=== PATIENT | male | born 1955 | race Caucasian/White ===

== ENCOUNTER 2025-05-05 14:47 | Emergency (ER) | payer MEDICARE, OTHER ==
[2025-05-05 15:07] VITALS: TEMP 98
[2025-05-05] MEDS: BABY ASPIRIN 81 MG CHEW PO ONE (15:12)
[2025-05-05] MEDS ORDERED: BABY ASPIRIN 81 MG CHEW ONE (15:12)
[2025-05-05 15:14] LABS: BASOPHIL % 0.4 % (0.2-1.2); Basophil (Absolute #) 0.06 x10^3/uL (0.01-0.08); Eosinophil (Absolute #) 0.04 x10^3/uL (0.04-0.54); Hematocrit 43.7 % (40.1-51.0); Hemoglobin 14.6 g/dL (13.7-17.5); IMMATURE GRAN # 0.04 x10^3u/L (0.001-0.031); IMMATURE GRAN % 0.3 % (0.001-0.429); Lymphocyte (Absolute #) 2.63 x10^3/uL (1.32-3.57); Mean Corpuscular Hemoglobin 28.8 pg (25.7-32.2); Mean Corpuscular Hgb Concent. 33.4 g/dL (32.3-36.5); Monocyte (Absolute #) 1.52 x10^3/uL (0.30-0.82); NUCLEATED RBC # 0.00 x10^3u/L (0.00-0.012); NUCLEATED RBC % 0.0 % (0.00-0.2); Platelet Count 289 x10^3/uL (163-337); Red Blood Count 5.07 x10^6/uL (4.63-6.08); White Blood Count 13.4 x10^3/uL (4.23-9.07)
--- NOTE | 2025-05-05 15:18 | ERPHSYRPT ---
- History of Present Illness Time Seen by Provider: 05/05/25 14:50 Source: patient Exam Limitations: no limitations Patient Subjective Stated Complaint: pt was leaning next to a truck yesterday when he suddenly blacked out and fell to the ground and injured his right foot/ankle, pt was helped up and he blacked out again Triage Nursing Assessment: Pt brought to the ER by his daughter, hypertensive, rates foot/ankle pain as 3/10 while not standing on it, pulses normal, skin n/w/d, right ankle bruised and swollen, denies chest pain, no difficulty breathing, doesn't appear to be in any distress Physician History: Patient is here for 2 episodes of syncope yesterday with right ankle pain. Patient states that he was at a "[employer]" [employer]. He states that he had dropped syncope. States he had never passed out before. States that he had been drinking alcohol and smoked marijuana for the first time in several years. He states that on one of his falls he twisted his right ankle. He now has right ankle pain and bruising with right foot bruising. He has not taken anything to make it better or worse. He has not iced it. Again he denies any history of heart issues, syncope, pulmonary embolism, arrhythmias, other cause of drop syncope. States he has no history of a stroke and is not on any blood thinners. Patient is taking PO well. Same number of urinations and defecations. The patient has no signs of altered mental status, nuchal rigidity, signs of meningitis. The patient is up-to-date on all vaccinations. Allergies/Adverse Reactions: No Known Drug Allergies Allergy (Verified 05/05/25 15:08) Home Medications: No Reportable Medications [No Reported Medications] 05/05/25 [History] Hx Influenza Vaccination/Date Given: No Hx Pneumococcal Vaccination/Date Given: No Travel Risk - International Travel Have you traveled outside of the country in past 3 weeks: No - Emerging Infectious Disease Are you exhibiting symptoms associated with any current EIDs: No - Past Medical History Pertinent Past Medical History: No - Past Surgical History Past Surgical History: Yes Musculoskeletal: Orthopedic Surgery Other Surgical History: back - Social History Smoking Status: Current every day smoker Exposure to second hand smoke: Yes Drug Use: marijuana - Social Determinants of Health Will the patient participate in the screening: Yes Do you worry about a steady place to live?: No Do you have any problems with any of the following?: No known problems In the past 12 months,have you had to go without utilities?: No Transportation Issues: No Has anyone in your support network made you feel unsafe?: No Have you or anyone in your house had to go w/o enough food: No - Nursing Vital Signs Nursing Vital Signs: Initial Vital Signs Pulse Rate 79 05/05/25 15:00 Respiratory Rate 14 05/05/25 15:00 Blood Pressure 153/84 05/05/25 15:00 O2 Sat by Pulse Oximetry 96 05/05/25 15:00 Pain Scale Pain Intensity 3 - Physical Exam SpO2 Interpretation: normal SpO2: 97 Comments: 05/05/25 15:19 Review of Systems Constitutional: Negative for fever. HENT: Negative for congestion. Respiratory: Negative for shortness of breath. Cardiovascular: Negative for chest pain. Syncope Gastrointestinal: Negative for abdominal pain. Genitourinary: Negative for dysuria. Musculoskeletal: Negative for back pain. Right foot pain Skin: Negative for rash. Neurological: Negative for headaches. Psychiatric/Behavioral: Negative for behavioral problems. All other systems reviewed and are negative. Physical Exam Vitals signs and nursing note reviewed. Constitutional: Appearance: Patient is well-developed. HENT: Head: Normocephalic and atraumatic. Eyes: Conjunctiva/sclera: Conjunctivae normal. Neck: Musculoskeletal: Normal range of motion. Trachea: No tracheal deviation. Cardiovascular: Rate and Rhythm: Normal rate. Heart sounds normal. Pulmonary: Effort: Pulmonary effort is normal. No respiratory distress. Abdominal: Palpations: Abdomen is soft. Musculoskeletal: General: Patient has right ankle bruising, tenderness, extending into the right foot. Some effusion to that ankle. Limited range of motion secondary to pain. Full strength in toes. Neurovascularly intact, 2+ pulses, 2+ cap refill. No proximal tibia or fibula tenderness. Compartments are soft, nontender. Skin: General: Skin is warm and dry. Neurological/ Psychiatric: Mental Status: Mental status, behavior, interaction with environment is appropriate for patient's age and condition Motor: Patient lifts arms against gravity. Muscle strength and tone are normal Reflexes: Intact major reflexes Sensory: Light touch sensation intact throughout upper and lower extremities Coordination: Rapid alternating movements are intact. Normal [id number] Gait/Stance: Posture is normal, patient is sitting up in bed with normal strength - Course Nursing assessment & vital signs reviewed: Yes EKG Interpreted by Me: Sinus Rhythm (EKG demonstrates sinus rhythm, rate of 75, OH interval 164, QRS 89, QTc is 416, no STEMI or other ST changes my interpretation at 1457) Ordered Tests: Active Orders 24 hr Category Date Time Status Functional Analyst STAT Care 05/05/25 15:01 Active EKG-ER Only STAT Care 05/05/25 15:01 Active IV Insertion STAT Care 05/05/25 15:01 Active ANKLE (3 VIEWS) Stat Exams 05/05/25 16:39 Completed CHEST 1 VIEW (PORTABLE) Stat Exams 05/05/25 16:39 Completed CHEST WITH CONTRAST [CT] Stat Exams 05/05/25 17:22 Completed FOOT (MINIMUM 3 VIEWS) Stat Exams 05/05/25 16:39 Completed HEAD WITHOUT CONTRAST [CT] Stat Exams 05/05/25 16:39 Completed CBC W DIFF Stat Lab 05/05/25 15:10 Completed CK-Creatinine Phosphokinase Stat Lab 05/05/25 15:10 Completed CMP Stat Lab 05/05/25 15:10 Completed D-DIMER QUANTITATIVE Stat Lab 05/05/25 15:10 Completed NT PRO BNPII Stat Lab 05/05/25 15:10 Completed TROPONIN Q4H Lab 05/05/25 15:10 Completed TROPONIN Q4H Lab 05/05/25 19:15 Ordered TROPONIN Q4H Lab 05/05/25 23:15 Ordered Medication Summary Discontinued Medications Generic Name Dose Route Start Last Admin Trade Name Freq PRN Reason Stop Dose Admin Aspirin 324 mg 05/05/25 15:01 05/05/25 15:12 Aspirin 81 Mg Tab.Chew PO 05/05/25 15:02 324 mg STAT ONE Administration Aspirin Confirm 05/05/25 15:12 Aspirin 81 Mg Tab.Chew Administered 05/05/25 15:13 Dose 324 mg .ROUTE .STK-MED ONE Lab/Rad Data: Laboratory Result Diagrams 05/05/25 15:10 05/05/25 15:10 Laboratory Results 05/05/25 05/05/25 05/05/25 Range/Units 15:10 15:10 15:10 WBC (4.23-9.07) x10^3/uL RBC (4.63-6.08) x10^6/uL Hgb (13.7-17.5) g/dL Hct (40.1-51.0) % MCV (79.0-92.2) fL MCH (25.7-32.2) pg MCHC (32.3-36.5) g/dL RDW (11.6-14.4) % Plt Count (163-337) x10^3/uL MPV (9.4-12.4) fL Gran % (34.0-67.9) % Immature Gran % (Auto) (0.001-0.429) % Nucleat RBC Rel Count (0.00-0.2) % Eos # (Auto) (0.04-0.54) x10^3/uL Immature Gran # (Auto) (0.001-0.031) x10^3u/L Absolute Lymphs (auto) (1.32-3.57) x10^3/uL Absolute Monos (auto) (0.30-0.82) x10^3/uL Absolute Nucleated RBC (0.00-0.012) x10^3u/L Lymphocytes % (21.8-53.1) % Monocytes % (5.3-12.2) % Eosinophils % (0.8-7.0) % Basophils % (0.2-1.2) % Absolute Granulocytes (1.78-5.38) x10^3/uL Basophils # (0.01-0.08) x10^3/uL D-Dimer 2.74 H* (0.0-0.50) mg/L Sodium 134 L (135-145) mmol/L Potassium 4.4 (3.5-5.1) mmol/L Chloride 106 (98-107) mmol/L Carbon Dioxide 20 L (22-30) mmol/L Anion Gap 13.2 (5-15) MEQ/L BUN 14 (9-20) mg/dL Creatinine 0.94 (0.66-1.25) mg/dL Estimated GFR 86.7 ML/MIN Glucose 110 H (74-106) mg/dL Calcium 9.4 (8.4-10.2) mg/dL Total Bilirubin 0.80 (0.2-1.3) mg/dL AST 28 (17-59) U/L ALT 33 (0-50) U/L Alkaline Phosphatase 94 (38-126) U/L Creatine Kinase 60 (55-170) U/L Troponin I < 0.012 (0.000-0.033) ng/mL NT-Pro-B Natriuret Pep 363 (<300) pg/mL Serum Total Protein 7.0 (6.3-8.2) g/dL Albumin 4.3 (3.5-5.0) g/dL //25 Range/Units 15:10 WBC 13.4 H (4.23-9.07) x10^3/uL RBC 5.07 (4.63-6.08) x10^6/uL Hgb 14.6 (13.7-17.5) g/dL Hct 43.7 (40.1-51.0) % MCV 86.2 (79.0-92.2) fL MCH 28.8 (25.7-32.2) pg MCHC 33.4 (32.3-36.5) g/dL RDW 13.5 (11.6-14.4) % Plt Count 289 (163-337) x10^3/uL MPV 9.8 (9.4-12.4) fL Gran % 67.9 (34.0-67.9) % Immature Gran % (Auto) 0.3 (0.001-0.429) % Nucleat RBC Rel Count 0.0 (0.00-0.2) % Eos # (Auto) 0.04 (0.04-0.54) x10^3/uL Immature Gran # (Auto) 0.04 H (0.001-0.031) x10^3u/L Absolute Lymphs (auto) 2.63 (1.32-3.57) x10^3/uL Absolute Monos (auto) 1.52 H (0.30-0.82) x10^3/uL Absolute Nucleated RBC 0.00 (0.00-0.012) x10^3u/L Lymphocytes % 19.7 L (21.8-53.1) % Monocytes % 11.4 (5.3-12.2) % Eosinophils % 0.3 L (0.8-7.0) % Basophils % 0.4 (0.2-1.2) % Absolute Granulocytes 9.06 H (1.78-5.38) x10^3/uL Basophils # 0.06 (0.01-0.08) x10^3/uL D-Dimer (0.0-0.50) mg/L Sodium (135-145) mmol/L Potassium (3.5-5.1) mmol/L Chloride (98-107) mmol/L Carbon Dioxide (22-30) mmol/L Anion Gap (5-15) MEQ/L BUN (9-20) mg/dL Creatinine (0.66-1.25) mg/dL Estimated GFR ML/MIN Glucose (74-106) mg/dL Calcium (8.4-10.2) mg/dL Total Bilirubin (0.2-1.3) mg/dL AST (17-59) U/L ALT (0-50) U/L Alkaline Phosphatase (38-126) U/L Creatine Kinase (55-170) U/L Troponin I (0.000-0.033) ng/mL NT-Pro-B Natriuret Pep (<300) pg/mL Serum Total Protein (6.3-8.2) g/dL Albumin (3.5-5.0) g/dL - Progress Progress: improved Progress Note: 05/05/25 15:21 Differential diagnosis includes: PNA, STEMI, NSTEMI, other infection, musculoskeletal pain, pneumothorax, head bleed, pulmonary embolism, arrhythmia, acute fracture - We'll obtain basic labs, fluids, EKG, troponin, chest x-ray - EKG shows no ST changes - my read - O2 saturations consistently greater than 95%. - CXR shows no pneumonia, pneumothorax - my read - head CT, x-ray right ankle and right foot 05/05/25 18:41 IMPRESSION: 1. A triangular bony fragment is seen along the lateral aspect of the base of the first metatarsal, which may represent a fracture or loose body. 2. Fractures of the medial malleolus and the distal aspect of the fibula with adjacent bony fragments are more evident on the ankle radiographs. 3. A linear lucency is seen along the lateral aspect of the lateral sesamoid bone on the oblique projection, which may be projectional. However, correlation with point tenderness is needed. 4. Soft tissue swelling is seen around the ankle joint and along the dorsal aspect of the foot. 5. Further evaluation with CT can be considered if clinically indicated. 6. Reduced bone density is present. IMPRESSION: 1. Oblique fracture of the right distal fibula, with mild displacement evident on the lateral projection. 2. Transverse fracture of the medial malleolus, with widening of the medial tibiotalar clear space. 3. A lucent area is seen along the medial aspect of the talus on the AP projection, likely a post-traumatic change. 4. A linear bony fragment is seen along the lateral aspect of the distal tibia, evident on the AP projection, and a tiny bony fragment is seen along the distal aspect of the fibula, which may represent possible fractured fragments. 5. Overlying soft tissue swelling is seen around the ankle joint. 6. Further evaluation with CT can be considered if clinically indicated. X-rays as above I did speak with Dr. Adames of orthopedic surgery. He recommended a sugar-tong leg with posterior splint. We placed the patient in this. See nursing note. I did check vascular compromise afterwards patient had good movement of his toes, 2+ cap refill, sensation intact. No signs of compartment syndrome. I did educate patient on returning for any new or changing symptoms. As above patient's first troponin was negative, EKG was nonischemic. CT scan of the chest demonstrated no pulmonary embolism. I did recommend that patient be admitted to the hospital. This would be for continued cardiac monitoring, repeat troponins, workup for syncope. Possible echocardiogram. Even after explaining the risks and benefits patient did decline. 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 Stated he needed to go home and take care of his . He will follow-up with his PCP first thing tomorrow morning to begin the outpatient syncope workup this will likely include Holter monitor, echocardiogram, reexam. Patient will need to also follow-up with podiatry given his above ankle and foot fractures. I did discuss all this with the patient as well as strict return precautions. He states his understanding. Will follow- up as described. Counseled pt/family regarding: lab results, diagnosis, need for follow-up, rad results - Departure Departure Disposition: Home Clinical Impression: Closed right ankle fracture, Fracture of metatarsal of right foot, closed, Syncope Condition: Stable Critical Care Time: No Referrals: ARLENE GAMA [Primary Care Provider, [facility]] - Follow up/PCP as directed Instructions: Ankle Fracture (DC) Additional Instructions: You will need to call the foot and ankle doctor, Dr. Krishan Fernandes [phone] Call first thing tomorrow morning. You will also need outpatient workup for your passing out. We did discuss admitting you to the hospital today. After discussion of risks and benefits he would prefer to go home. You will likely need a heart rate monitor, reexam with your primary care doctor first thing tomorrow morning, echocardiogram. You should call 911 or return to the emergency department for any new or changing symptoms.
[2025-05-05 15:45] LABS: CK-Creatinine Phosphokinase 60.0 U/L (55-170); Calcium 9.4 mg/dL (8.4-10.2); Carbon Dioxide 20.0 mmol/L (22-30); Creatinine 1 0.94 mg/dL (0.66-1.25); EST GLOMERULAR FILTRATION RATE 86.7 ML/MIN; Glucose 110.0 mg/dL (74-106); NT PRO BNPII 363.0 pg/mL (<300); Potassium 4.4 mmol/L (3.5-5.1); SGOT/AST 28.0 U/L (17-59); SGPT/ALT 33.0 U/L (0-50); Total Protein 7.0 g/dL (6.3-8.2)
--- NOTE | 2025-05-05 17:13 | XRAY ---
CLINICAL HISTORY: syncope COMPARISON: None. TECHNIQUE: Axial non-contrast CT scan of the brain was performed from the skull base to the high parietal region. One of the following dose reduction techniques was utilized for this exam: Automated exposure control, adjustment of the mA and/or kV according to patient size, and use of iterative reconstruction. FINDINGS: Brain Parenchyma: Normal attenuation of the cerebral hemispheres, cerebellum, and brainstem. No evidence of acute infarct, hemorrhage, or mass effect. No abnormal areas of hypoattenuation or hyperattenuation. Ventricular System: The ventricles are dilated, in keeping with age-related involutional changes. Subarachnoid Spaces: Prominent sulci and cisterns are more appreciated in the frontal regions bilaterally, more so on the left side. No evidence of subarachnoid hemorrhage or extra-axial fluid collections. Cerebellum and Brainstem: No masses, lesions, or areas of abnormal density are identified. Orbits: Normal appearance of the globes, optic nerves, and extraocular muscles. No evidence of orbital masses or abnormal density. Sinuses: The paranasal sinuses are clear. No evidence of sinusitis or mucosal thickening. Mastoid Air Cells: The mastoid air cells are clear. No evidence of mastoiditis. Skull: Normal skull morphology. IMPRESSION: 1. No acute intracranial abnormality. 2. Age-related atrophic brain changes, more appreciated in the frontal lobes. Electronically Signed by: Anshu Hermosillo MD. (05/05/2025 17:11:14 EDT)
[2025-05-05 17:16] VITALS: BP 174/97; PULSE 75; RESP 16
--- NOTE | 2025-05-05 17:22 | XRAY ---
CLINICAL HISTORY: fall COMPARISON: No prior studies available for comparison. TECHNIQUE: X-ray images of the right ankle were obtained in anteroposterior (AP), lateral, and oblique projections. FINDINGS: Bone Structure: A fracture of the right distal fibula is seen, with mild displacement evident on the lateral projection. A fracture of the medial malleolus is seen, with widening of the medial tibiotalar clear space. A tiny bony fragment is seen along the distal aspect of the lateral malleolus, which may represent a possible avulsion fragment. A lucent area is seen along the medial aspect of the talus on the AP projection. A bony fragment is seen along the lateral aspect of the distal tibia, evident on the AP projection. A plantar calcaneal spur is present. An enthesophyte is seen along the posterior aspect of the calcaneus at the attachment site of the Achilles tendon. Joint Spaces: The tibiotalar joint space is increased. Soft Tissues: Overlying soft tissue swelling is seen around the ankle joint. IMPRESSION: 1. Oblique fracture of the right distal fibula, with mild displacement evident on the lateral projection. 2. Transverse fracture of the medial malleolus, with widening of the medial tibiotalar clear space. 3. A lucent area is seen along the medial aspect of the talus on the AP projection, likely a post-traumatic change. 4. A linear bony fragment is seen along the lateral aspect of the distal tibia, evident on the AP projection, and a tiny bony fragment is seen along the distal aspect of the fibula, which may represent possible fractured fragments. 5. Overlying soft tissue swelling is seen around the ankle joint. 6. Further evaluation with CT can be considered if clinically indicated. Disclaimer: A subtle bone abnormality or fracture may not be readily apparent on X-rays, thus clinical correlation and further imaging including follow-up CT, MRI, or follow-up X-rays are advised as needed. Electronically Signed by: Anshu Hermosillo MD. (05/05/2025 17:22:27 EDT)
--- NOTE | 2025-05-05 17:39 | XRAY ---
CLINICAL HISTORY: PNA COMPARISON: No prior studies are available for comparison. TECHNIQUE: An X-ray image of the chest was obtained in the AP projection. FINDINGS: Pulmonary Parenchyma: A faint, round shadow is seen in the left lower lung zone (arrow). There is no evidence of pleural effusion or pleural thickening. Heart and Mediastinum: The heart size and shape are normal. There is no mediastinal widening or masses. No hilar or mediastinal lymphadenopathy is identified. Bony Thorax: The bony thorax appears intact without fractures or deformities. Soft Tissues: The soft tissues overlying the chest wall are unremarkable. IMPRESSION: 1. No acute cardiopulmonary abnormalities are identified. 2. A faint, round shadow is seen in the left lower lung zone (arrow), which can be related to costochondral junction calcifications; correlation with the lateral view is recommended. Electronically Signed by: Anshu Hermosillo MD. (05/05/2025 17:38:01 EDT)
--- NOTE | 2025-05-05 17:43 | XRAY ---
CLINICAL HISTORY: fall COMPARISON: No prior studies are available for comparison. TECHNIQUE: X-ray images of the right foot were obtained in anteroposterior (AP), lateral, and oblique projections. FINDINGS: Bone Structure: A triangular bony fragment is seen along the lateral aspect of the base of the first metatarsal. Fractures of the medial malleolus and the distal aspect of the fibula with adjacent bony fragments are more evident on the ankle radiographs. Reduced bone density is noted. A bipartite medial sesamoid bone is seen. A linear lucency is seen along the lateral aspect of the lateral sesamoid bone on the oblique projection, which may be projectional. A posterior Stieda process is seen. A plantar calcaneal spur is present. An enthesophyte is seen along the posterior aspect of the calcaneum at the attachment site of the Achilles tendon. Joint Spaces: Joint spaces are normal. There is no evidence of joint effusion or subluxation. Soft Tissues: Overlying soft tissue swelling is seen around the ankle joint and along the dorsal aspect of the foot. IMPRESSION: 1. A triangular bony fragment is seen along the lateral aspect of the base of the first metatarsal, which may represent a fracture or loose body. 2. Fractures of the medial malleolus and the distal aspect of the fibula with adjacent bony fragments are more evident on the ankle radiographs. 3. A linear lucency is seen along the lateral aspect of the lateral sesamoid bone on the oblique projection, which may be projectional. However, correlation with point tenderness is needed. 4. Soft tissue swelling is seen around the ankle joint and along the dorsal aspect of the foot. 5. Further evaluation with CT can be considered if clinically indicated. 6. Reduced bone density is present. Disclaimer: A subtle bone abnormality or fracture may not be readily apparent on X-rays, thus clinical correlation and further imaging including follow-up CT, MRI, or follow-up X-rays are advised as needed. Electronically Signed by: Anshu Hermosillo MD. (05/05/2025 17:41:13 EDT)
[2025-05-05 18:22] VITALS: O2SAT 97
--- NOTE | 2025-05-05 18:28 | XRAY ---
CLINICAL HISTORY: PE, elevated dimer COMPARISON: CXR 05/05/2025 15:02:09 CARDIAC/VASCULAR SONOGRAPHER. TECHNIQUE: Contiguous 3.[address] images of the chest were acquired with administration of intravenous contrast. Coronal and sagittal reconstructions were obtained. IV contrast was administered for post-contrast images. One of the following dose reduction techniques was utilized for this exam: automated exposure control, adjustment of the mA and/or kV according to patient size, and use of iterative reconstruction. FINDINGS: Lungs: The lungs are clear with no evidence of consolidation, collapse, or focal lesions. Bi-basal thin atelectasis is present. There are no ground-glass opacities or interstitial changes. There is no pleural effusion or pleural thickening. A calcified small right lower lobe pulmonary nodule measures 2.5 mm. See image 50, Series 4. Mediastinum: There is no mediastinal mass or abnormal lymphadenopathy. There is a normal appearance of the thymus. Calcified right paratracheal lymph nodes are noted. Hilar Structures: The hilar structures are normal in size and configuration, with no enlargement. Heart and Great Vessels: The heart is normal in size and configuration. There is no pericardial effusion. The thoracic aorta and other great vessels are normal in caliber and course. There is no significant atherosclerosis or aneurysm. The great vessels show normal enhancement post-contrast. Pulmonary Arteries: There is no evidence of pulmonary embolism. The pulmonary arteries are normal in size and course. Esophagus: The esophagus is normal in course and caliber. There are no masses or dilatation. Bones: There are fractures of the right lateral 7th and 8th ribs, with sclerotic edges and possible callus formation. The left 6th rib shows a fracture at the most anterior end, with possible callus formation noted at the costochondral junction, which correlates with the calcified nodular shadow seen in the prior X-ray. Bone density and alignment are normal. Chest Wall: There are no masses or soft tissue abnormalities. Upper Abdomen: The visualized portions of the liver, spleen, pancreas, adrenal glands, and kidneys are normal. There are no abnormalities noted in the visualized upper abdominal organs. Thyroid: The thyroid is normal in size and morphology. There are no nodules or masses. Upper abdomen: Bilateral simple renal cortical cysts are noted. IMPRESSION: 1. No pulmonary thromboembolism, no acute vascular or pulmonary abnormality. 2. There are fractures of the right 7th and 8th ribs with callus formation, and a fracture of the left 6th rib at the most anterior end (which correlates with the calcified shadow in the prior X-ray), representing healing fractures. Correlation with clinical data is recommended. Electronically Signed by: Anshu Hermosillo MD. (05/05/2025 18:27:07 EDT)
[2025-05-05 20:17] LABS: Slide Review 1 YES
== END 2025-05-05 18:56 | disposition home or self-care (01) ==
LOC: ED 14:47
DX: S82.831A Other fracture of upper and lower end of right fibula, initial encounter for closed fracture (principal); S82.51XA Displaced fracture of medial malleolus of right tibia, initial encounter for closed fracture; S92.311A Displaced fracture of first metatarsal bone, right foot, initial encounter for closed fracture; W18.39XA Other fall on same level, initial encounter; R55 Syncope and collapse; Z72.0 Tobacco use

== ENCOUNTER 2025-05-14 05:59 | Day surgery (SDC) | payer MEDICARE, OTHER ==
[2025-05-14] MEDS ORDERED: CEFAZOLIN SODIUM ONE (06:09)
[2025-05-14] MEDS ORDERED: Lactated Ringers 1,000 ML IV ONE (06:10)
[2025-05-14] MEDS ORDERED: celeBREX 100 MG ONE (06:10)
[2025-05-14] MEDS ORDERED: TYLENOL EXTRA STRENGTH 500 MG ONE (06:10)
[2025-05-14] MEDS ORDERED: Decadron 4 MG ONE (06:10)
[2025-05-14] MEDS ORDERED: NEURONTIN ONE (06:10)
[2025-05-14] MEDS: NEURONTIN PO ONE (06:13)
[2025-05-14] MEDS: TYLENOL EXTRA STRENGTH 500 MG PO ONE (06:13)
[2025-05-14] MEDS: celeBREX 100 MG PO ONE (06:13)
[2025-05-14] MEDS: Decadron 4 MG PO ONE (06:13)
[2025-05-14] MEDS: Lactated Ringers 1,000 ML IV SCH (06:14)
[2025-05-14 06:28] VITALS: RESP 18
[2025-05-14 06:30] LABS: Hematocrit 41.2 % (40.1-51.0); Hemoglobin 13.8 g/dL (13.7-17.5); Mean Corpuscular Hemoglobin 28.8 pg (25.7-32.2); Mean Corpuscular Hgb Concent. 33.5 g/dL (32.3-36.5); Platelet Count 385 x10^3/uL (163-337); Red Blood Count 4.79 x10^6/uL (4.63-6.08); White Blood Count 10.7 x10^3/uL (4.23-9.07)
[2025-05-14 06:44] LABS: Calcium 9.5 mg/dL (8.4-10.2); Carbon Dioxide 20.0 mmol/L (22-30); Creatinine 1 0.83 mg/dL (0.66-1.25); EST GLOMERULAR FILTRATION RATE 93.6 ML/MIN; Glucose 120.0 mg/dL (74-106); Potassium 3.7 mmol/L (3.5-5.1); SGOT/AST 29.0 U/L (17-59); SGPT/ALT 26.0 U/L (0-50); Total Protein 7.2 g/dL (6.3-8.2)
[2025-05-14] MEDS ORDERED: Marcaine Mpf 0.5% Vial 30 Ml ONE (06:45)
[2025-05-14] MEDS ORDERED: EXPAREL 133 MG/10 ML VIAL IJ ONE (06:46)
[2025-05-14] MEDS ORDERED: propofoL IV ONE ×2 (06:47→09:00)
[2025-05-14] MEDS ORDERED: SUBLIMAZE 100 MCG/2 ML ONE (06:47)
[2025-05-14] MEDS ORDERED: Versed 2 MG/2 ML Injection ONE (06:47)
[2025-05-14] MEDS ORDERED: TORAdol 30 mg Injection ONE (07:28)
[2025-05-14] MEDS ORDERED: BRIDION 200MG/2ML IV ONE (07:28)
[2025-05-14] MEDS ORDERED: Zofran 4 MG/2 ML VIAL ONE (07:28)
[2025-05-14] MEDS ORDERED: ROCURONIUM BROMIDE IV ONE (07:28)
[2025-05-14] MEDS ORDERED: Xylocaine-Mpf 2% 5 Ml Vial ONE (07:28)
[2025-05-14] MEDS ORDERED: PHENYLEPHRINE HCL ONE (07:40)
[2025-05-14] MEDS ORDERED: Ephedrine Sulfate 50 MG/ML ONE (07:46)
[2025-05-14 07:59] LABS: ABO TYPING O; RH TYPING POSITIVE
--- NOTE | 2025-05-14 10:00 | XRAY ---
Indication: Right ankle ORIF surgery. Intraoperative fluoroscopy provided 4 minutes 46 seconds. 24 digital spot images submitted for interpretation ultimately demonstrates lateral fixation plate/transverse screws fixating lateral malleolus fracture, near anatomic in apposition/alignment. Incidental localizer needle tip projects over medial malleolus. Correlate with intraoperative findings/report.
[2025-05-14 10:21] VITALS: TEMP 97; O2SAT 95
[2025-05-14 10:31] VITALS: BP 145/60; PULSE 82
--- NOTE | 2025-05-14 12:38 | XRAY ---
Four minutes and 46 seconds of fluoroscopy was used in surgery for a right ankle ORIF surgery.
--- NOTE | 2025-05-15 09:44 | OP ---
SURGERY DATE/TIME: 05/14/2025 [id number] PREOPERATIVE DIAGNOSES: 1) Right ankle bimalleolar fracture equivalent. 2) Syndesmosis disruption, acute. 3) Deltoid ligament insufficiency. POSTOPERATIVE DIAGNOSES: 1) Right ankle bimalleolar fracture equivalent. 2) Syndesmosis disruption, acute. 3) Deltoid ligament insufficiency. PROCEDURES: 1) Open reduction and internal fixation, bimalleolar fracture, right ankle. 2) Syndesmosis open reduction and internal fixation. 3) Deltoid ligament repair, right ankle. SURGEON: Krishan Fernandes MD ART MODEL: None. ANESTHESIA: General plus a preoperative popliteal and saphenous block. See Anesthesia report for details. HEMOSTASIS: Thigh tourniquet set to 300 mmHg for a total of 60 total tourniquet minutes. ESTIMATED BLOOD LOSS: Approximately 10 mL. MATERIALS: A Micheline distal lateral fibula 6 hole, right with two 3.5 x 50 mm syndesmotic screws and one 1.45 JuggerKnot for deltoid ligament repair; 4-0 Monocryl, 3-0 nylon. INJECTABLES: See Anesthesia report for details. INDICATIONS: The patient is a very pleasant 69-year-old male who presented to my service approximately a week and a half ago due to an injury to the right ankle where he had a low rotational fracture in the form of a supination external rotation injury. This showed a clear fibula fracture with external rotation and medial clear space widening. From that standpoint, patient was consented for surgery. We did give him time to allow for some swelling to dissipate and at this time, he is ready to proceed with open reduction and internal fixation. Patient has been made aware of all risks, complications and benefits of surgical intervention at this time including, but not limited to, infection, hematoma, seroma, possibility of delayed wound healing, non-wound healing, possibility of neurovascular damage and possibility of chronic pain. Patient has also been made aware of possible painful hardware. He has been consented knowing that he is a nicotine-dependent patient and that this is associated with issues with skin healing and bone healing which may delay treatment or potentially require further treatment at that time. No guarantees were provided as to the outcome of surgical intervention. Plenty of time was allowed for the patient to ask questions, which were answered to his apparent satisfaction. It is at this time we decided to proceed. DESCRIPTION OF PROCEDURE AND FINDINGS: The patient was brought into the PACU prior to the procedure and provided a popliteal and saphenous block. See Anesthesia report for details. Patient was then brought into the operative suite and placed on the operative table in the supine position. General anesthesia was administered until the patient was adequately sedated. Once the patient was sedated, a well-padded thigh tourniquet was applied to the patient's right thigh. The right lower extremity was prepped and draped in the typical sterile fashion and lowered onto the surgical field. At this time, an Esmarch was utilized to exsanguinate the leg and the tourniquet was then inflated. Following this, a 10 blade was utilized to make a linear incision where careful dissection was made down to the level of the fibula, quickly identifying the fibular fracture. From that standpoint, no neurovascular structures were damaged in the dissection to this area. From that standpoint, the fracture was identified. A dental pick was utilized to clean out any hematoma and then, any periosteum that was enveloped between the 2 fracture fragments. From that standpoint, copious amounts of sterile saline were utilized to flush the surgical site and a lobster claw was then utilized to reduce the fracture. There was a significant amount of external rotation that was accounted for, helping to push the talus back into the normalized position and making sure that the fibular length was restored with Shenton's line and dime sign being adequate on the mortise view. Once this was accomplished, a 6 hole right Micheline distal lateral fibular plate was then affixed distally first and then, to the proximal aspect of the leg, gaining excellent apposition to the bone and alignment of the fibula. Once this was achieved, the alignment was assessed and deemed to be adequate. An external rotation test was then performed to the right ankle, which demonstrated some gapping at the level of the syndesmosis, for which two 3.5 x 50 mm fully-threaded screws were then introduced, utilizing a [id number] reduction forceps in order to stabilize the syndesmosis in an adequate position. From that standpoint, stress views were once again taken, demonstrating medial stress to the deltoid ligament, which did show some further gapping and decision was made to open up on the medial aspect of the ankle where the superficial deltoid ligament, as well as deep deltoid ligament, were torn. A 1.45 JuggerKnot was then drilled into the distal tip of the medial malleolus, and then, the needles were then passed through the superficial and deep deltoid. Following this, the stress views were once again taken, demonstrating significant improvement in the deltoid insufficiency. Following this, copious amounts of sterile saline were utilized to flush the surgical site. A 4-0 Monocryl was then utilized in a simple interrupted buried-type fashion to coapt the subcutaneous skin edges; 3-0 nylon was utilized in a horizontal mattress-type fashion to coapt the skin in an everted-type fashion. A dressing consisting of Betadine, Adaptic, 4 x 4, Kerlix, ABD, and a well-padded posterior splint with sugar-tong was applied to the patient's right lower extremity with the foot orthogonal relative to the longitudinal axis of the leg. Pat was then reversed from anesthesia and returned to the postoperative anesthesia care unit with vital signs stable and vascular status intact. The patient handled the anesthesia, as well as the procedure, without significant complication. Postoperative orders are as indicated in the patient's discharge chart.
== END 2025-05-14 10:40 | disposition home or self-care (01) ==
LOC: SDC 05:59
PROVIDERS: ATTEND Podiatrist Foot & Ankle Surgery
DX: S82.841A Displaced bimalleolar fracture of right lower leg, initial encounter for closed fracture (principal); S93.431A Sprain of tibiofibular ligament of right ankle, initial encounter; S93.421A Sprain of deltoid ligament of right ankle, initial encounter
CPT/HCPCS: 27695; 27814; 27829; 36415; 73610; 76000; 80053; 85027; 86850; 86900; 86901; C1713